=== PATIENT | female | born 1960 | race Caucasian/White ===

== ENCOUNTER 2022-10-10 18:22 | Emergency (ER) | payer OTHER ==
[~2022-10-10] VITALS: Ht 154.9 cm; Wt 70.8 kg
[2022-10-10 18:29] VITALS: BP 139/86
--- NOTE | 2022-10-10 18:59 | NUR ---
62/F PRESENTS TO ED WITH C/O LLQ PAIN SINCE MONDAY. PATIENT REPORTS SHE WAS SEEN AT [facility] AND [facility], PER DC PAPER WORK NO OBVIOUS CAUSE FOR PAIN. PATIENT DENIES N/V/D, REPORTS SHE HAS BEEN TAKING TYLENOL WITH NO RELIEF.
--- NOTE | 2022-10-10 19:16 | NUR ---
Pt report given to PARISA DONALDSON. Transfer of care at this time.
--- NOTE | 2022-10-10 19:20 | NUR ---
Pt taken to CT for imaging.
[2022-10-10] MEDS ORDERED: HYDROcodone/APAP 5/325 MG 1 TAB TAB PO ONE (19:30)
--- NOTE | 2022-10-10 19:46 | NUR ---
technical research scientist at bedside for lab draw.
--- NOTE | 2022-10-10 19:50 | NUR ---
Urine sample collected and sent to lab.
[2022-10-10 19:53] LABS: BASOPHILS % (AUTO) 0.5 % (0.0-2.0); EOSINOPHILS % (AUTO) 0.7 % (0.0-4.0); HEMATOCRIT 40.7 % (36-48); HEMOGLOBIN 13.9 g/dL (12.0-16.0); LYMPHOCYTES # (AUTO) 2.1 K/uL (2.5-16.5); LYMPHOCYTES % (AUTO) 35.8 % (20.5-51.1); MEAN CORPUSCULAR HEMOGLOBIN 32 pg (27-31); MEAN CORPUSCULAR HGB CONC 34 g/dL (33-37); MEAN CORPUSCULAR VOLUME 93.3 fL (80-94); MONOCYTES # (AUTO) 0.4 K/uL (0.8-1.0); MONOCYTES % (AUTO) 6.5 % (1.7-9.3); NEUTROPHILS # (AUTO) 3.3 K/uL (1.8-7.7); NEUTROPHILS % (AUTO) 56.5 % (42.2-75.2); PLATELET COUNT (AUTO) 212 K/uL (140-450); RED BLOOD CELL COUNT(AUTO) 4.37 MIL/uL (4.20-5.40); RED CELL DISTRIBUTION WIDTH 12.6 % (11.6-13.7); WHITE BLOOD COUNT (AUTO) 5.9 K/uL (4.8-10.8)
[2022-10-10 20:17] LABS: ANION GAP 8.8 (8-16); CREATININE 1.5 mg/dL (0.6-1.3); POTASSIUM 3.8 mmol/L (3.5-5.1); TOTAL BILIRUBIN 0.2 mg/dL (0.0-1.0)
[2022-10-10 20:41] LABS: APPEARANCE,URINE CLEAR (CLEAR); BILIRUBIN,URINE NEGATIVE (NEGATIVE); BLOOD, URINE NEGATIVE (NEGATIVE); COLOR,URINE YELLOW (YELLOW); LEUKOCYTE ESTERASE ,URINE TRACE (NEGATIVE); NITRITE, URINE NEGATIVE (NEGATIVE); UGLUCOSE NEGATIVE (NEGATIVE)
[2022-10-10 21:06] LABS: RBC,URINE NONE SEEN /HPF (0-5); WBC,URINE 0-5 /HPF (0-5)
[2022-10-10] MEDS ORDERED: BEN10 PO (22:38)
[2022-10-10] MEDS ORDERED: ACET-9800 PO (22:38)
--- NOTE | 2022-10-10 23:46 | NUR ---
Patient discharged with v/s stable. Written and verbal after care instructions given and explained. Patient alert, oriented and verbalized understanding of instructions. All questions addressed prior to discharge. ID band removed. Patient advised to follow up with PMD. Rx of Margaret campbell and Roland sent to pharmacy. Patient educated on indication of medication including possible reaction and side effects. Opportunity to ask questions provided and answered.
[2022-10-10 23:48] VITALS: BP 122/70
== END 2022-10-10 23:48 | disposition home or self-care (01) ==
LOC: MED 18:22
DX: N17.9 Acute kidney failure, unspecified (principal); R10.32 Left lower quadrant pain; Z79.899 Other long term (current) drug therapy
CPT/HCPCS: 36415; 80053; 81001; 83690; 85025; 99284